=== PATIENT | male | born 1985 | race Caucasian/White ===

== ENCOUNTER → 2024-06-05 | Outpatient (CLI) | payer OTHER ==
[2024-06-05 17:04] LABS: Campylobacter Sp Not Detected (NOT DETECT); Enteroaggregative E. coli-EAEC Not Detected (NOT DETECT); Enteropathogenic E. coli-EPEC Detected (NOT DETECT); Enterotoxigenic E. coli-ETEC Detected (NOT DETECT); Plesiomonas Shigelloides Not Detected (NOT DETECT); Salmonella Sp Not Detected (NOT DETECT); Vibrio Cholerae Not Detected (NOT DETECT); Vibrio Sp Not Detected (NOT DETECT); Yersinia Enterocolitica Not Detected (NOT DETECT)
[2024-06-05 17:05] LABS: Adenovirus F 40/41 Not Detected (NOT DETECT); Astrovirus Not Detected (NOT DETECT); Cryptosporidium Not Detected (NOT DETECT); Cyclospora Cayetanensis Not Detected (NOT DETECT); E. Coli O157 Not Detected (NOT DETECT); Entamoeba Histolytica Not Detected (NOT DETECT); Giardia Lamblia Not Detected (NOT DETECT); Norovirus GI/GII Not Detected (NOT DETECT); Rotavirus A Not Detected (NOT DETECT); Sapovirus Not Detected (NOT DETECT); Shiga Toxin-prod E. coli-STEC Not Detected (NOT DETECT); Shigella/Enteroin E. coli-EIEC Not Detected (NOT DETECT)
== END ==
LOC: LAB SHORT 08:00 → LAB 08:00
PROVIDERS: Physician Assistant
DX: R19.7 Diarrhea, unspecified (principal)
CPT/HCPCS: 87507

== ENCOUNTER 2025-06-22 16:14 | Emergency (ER) | payer OTHER ==
[~2025-06-22] VITALS: Ht 167.6 cm; Wt 72.6 kg
[2025-06-22 17:07] VITALS: BP 144/90
[2025-06-22] MEDS ORDERED: SULTRIDS PO (19:04)
[2025-06-22] MEDS ORDERED: Trimethoprim/Sulfamethoxazole DS Tab PO ONE (19:05)
[2025-06-22] MEDS ORDERED: Ketorolac Tromethamine 15mg Vial IM ONE (19:05)
== END 2025-06-22 19:26 | disposition home or self-care (01) ==
LOC: ER 16:14
DX: L03.116 Cellulitis of left lower limb (principal)
CPT/HCPCS: 73560-LT; 96372; 99283-25; A9270; J1885

== ENCOUNTER 2025-06-27 14:45 | Inpatient (IN) | payer OTHER ==
[~2025-06-27] VITALS: Ht 167.6 cm; Wt 76.3 kg
[~2025-06-27 14:45] MED LIST: SULTRIDS PO
[2025-06-27 17:11] LABS: BASOPHILS ABSOLUTE AUTO 0.03 K/mm3 (0.00-0.23); BASOPHILS PERCENT AUTO 0 % (0-2); EOSINOPHILS ABSOLUTE AUTO 0.03 K/mm3 (0.00-0.68); EOSINOPHILS PERCENT AUTO 0 % (0-6); Hematocrit 39.2 % (37.0-53.0); Hemoglobin 13.4 g/dL (13.5-17.5); IMMATURE GRAN ABSOLUTE AUTO 0.03 K/mm3 (0.00-0.10); IMMATURE GRAN PERCENT AUTO 0 % (0-1); LYMPHOCYTES ABSOLUTE AUTO 1.62 K/mm3 (0.84-5.20); LYMPHOCYTES PERCENT AUTO 15 % (21-46); MONOCYTES ABSOLUTE AUTO 0.86 K/mm3 (0.16-1.47); MONOCYTES PERCENT AUTO 8 % (4-13); Mean Corpuscular HGB Conc 34.2 g/dL (31.5-36.5); Mean Corpuscular Volume 82 fL (80-100); NEUTROPHILS ABSOLUTE AUTO 8.40 K/mm3 (1.96-9.15); NEUTROPHILS PERCENT AUTO 77 % (41-73); NRBC ABSOLUTE 0.00 K/mm3 (0.00-0.02); NRBC Auto 0.0 /100 WBC (0.0-0.2); Platelet Count 321 K/mm3 (150-400); RDW Coefficient Variation 12.5 % (11.7-14.2); RDW Standard Deviation 37.7 fL (35.1-46.3)
[2025-06-27 17:38] LABS: C-REACTIVE PROTEIN, EXT RANGE 11.8 mg/dL (0.000-0.300)
[2025-06-27 17:41] LABS: Alanine Aminotransfer (ALT/SGP 36.0 U/L (12-78); Albumin, Blood 3.8 g/dL (3.4-5.0); Albumin/Globulin Ratio 0.9 (0.8-1.8); Anion Gap 7.0 mmol/L (3-11); Aspartate Aminotrans (AST/SGOT 22.0 U/L (12-37); Bilirubin, Total 0.4 mg/dL (0.1-1.0); Blood Urea Nitrogen 13.0 mg/dL (8-24); CO2, Blood 25.0 mmol/L (21-32); Calcium, Blood 9.4 mg/dL (8.5-10.1); Chloride, Blood 106.0 mmol/L (98-108); Creatinine, Blood 0.84 mg/dL (0.60-1.20); Globulin, Blood 4.2 g/dL (2.2-4.0); Glucose, Blood 98.0 mg/dL (70-99); Potassium, Blood 4.0 mmol/L (3.5-5.5); Sodium, Blood 134.0 mmol/L (136-145); Total Protein, Blood 8.0 g/dL (6.4-8.2)
[2025-06-27] MEDS ORDERED: Ondansetron HCl 2 MG / ML 2ML Vial IV PRN (19:05)
[2025-06-27] MEDS ORDERED: Vancomycin (Pharmacy Consult) IV SCH (19:10)
[2025-06-27] MEDS ORDERED: NS 1,000 ML IV SCH (19:10)
[2025-06-27] MEDS ORDERED: Ketorolac Tromethamine 15mg Vial IV PRN (19:25)
[2025-06-27 19:59] LABS: U Amphetamine Screen Not Detected; U Barbituate Screen Not Detected; U Benzodiazapine Screen DETECTED; U Buprenorphine Screen Not Detected; U Cannabinoids Screen Not Detected; U Cocaine Screen Not Detected; U Methadone Screen Not Detected; U Methamphetamine Screen Not Detected; U Opiates Screen Not Detected; U Oxycodone Screen Not Detected; U Phencyclidine Screen Not Detected
[2025-06-27] MEDS ORDERED: CefTRIAXone Sodium 2,000 MG in NS 100 ML IV SCH (20:00)
[2025-06-27] MEDS ORDERED: Ketorolac Tromethamine 15mg Vial IV ONE (20:00)
[2025-06-27] MEDS ORDERED: Lactobacil 2-S.Thermo-Bifido 1 1 Cap PO SCH (21:00)
[2025-06-27 21:47] VITALS: BP 133/76
[2025-06-28] VITALS (15 sets, daily range): BP systolic 120–146; BP diastolic 68–88
[2025-06-28 06:24] LABS: Anion Gap 6.0 mmol/L (3-11); Blood Urea Nitrogen 18.0 mg/dL (8-24); CO2, Blood 24.0 mmol/L (21-32); Calcium, Blood 8.4 mg/dL (8.5-10.1); Chloride, Blood 109.0 mmol/L (98-108); Creatinine, Blood 0.83 mg/dL (0.60-1.20); Glucose, Blood 93.0 mg/dL (70-99); Potassium, Blood 4.4 mmol/L (3.5-5.5); Sodium, Blood 135.0 mmol/L (136-145)
[2025-06-28] MEDS ORDERED: NS 250 ML IV PRN (06:30)
--- NOTE | 2025-06-28 06:45 | NUR ---
SHIFT SUMMARY PT ARRIVED FROM ER AROUND 2200. ORIENTED TO ROOM. REDDENED AREA OUTLINED ON LEFT LEG. IV VANCO SENT UP WITH PT AND GIVEN PER EMAR. 1 TIME BAG OF NS INFUSING @ 200ml/hr. SNACK AND DRINK GIVEN ON ARRIVAL BUT PT HAS BEEN NPO SINCE MIDNIGHT. ORTHO CONSULT PLACED WITH ANSWERING SERVICE. PT ARRIVED WITH WALLET AND SIFNIFICANT AMMOUNT OF MORIN. SECURITY CALLED AND ITEMS TAKEN AND SECURED. VSS. BED IN LOWEST POSITION AND CALL LIGHT IN REACH.
[2025-06-28 08:43] LABS: Hematocrit 35.3 % (37.0-53.0); Hemoglobin 11.9 g/dL (13.5-17.5); Mean Corpuscular HGB Conc 33.7 g/dL (31.5-36.5); Mean Corpuscular Volume 81 fL (80-100); NRBC ABSOLUTE 0.00 K/mm3 (0.00-0.02); NRBC Auto 0.0 /100 WBC (0.0-0.2); Platelet Count 261 K/mm3 (150-400); RDW Coefficient Variation 12.4 % (11.7-14.2); RDW Standard Deviation 37.2 fL (35.1-46.3)
[2025-06-28] MEDS ORDERED: Enoxaparin 40 MG/0.4 ML SYR SC SCH (09:00)
--- NOTE | 2025-06-28 16:07 | NUR ---
NOTE VANCO DUE AT 1400. NOTIFIED PHARMACY IT IS LATE, PHARMACY SAID "GO AHEAD AND SEND TO OR FOR IT TO BE GIVEN. CALLED DAY SURGERY TO BE MADE AWARE. VANCO TUBED OFF.
[2025-06-28] MEDS ORDERED: Midazolam HCl 1MG / ML 2ML Vial ONE (16:25)
[2025-06-28] MEDS ORDERED: FentaNYL Citrate 50 MCG/ML 2 ML Injection ONE (16:44)
[2025-06-28] MEDS ORDERED: Ondansetron HCl 2 MG / ML 2ML Vial ONE (16:47)
[2025-06-28] MEDS ORDERED: Dexamethasone Sod Phos 10 MG/ML 1ML VIAL ONE (16:47)
[2025-06-28] MEDS ORDERED: Ketorolac Tromethamine 30mg Vial ONE (17:04)
[2025-06-28] MEDS ORDERED: Ondansetron HCl 2 MG / ML 2ML Vial IV PRN (17:10)
[2025-06-28] MEDS ORDERED: FentaNYL Citrate 50 MCG/ML 2 ML Injection IV PRN ×2 (17:10)
[2025-06-28] MEDS ORDERED: HYDROmorphone HCl/Pf 1MG SYR IV PRN ×2 (17:10)
[2025-06-28] MEDS ORDERED: HYDROmorphone HCl/Pf 1MG SYR ONE (17:27)
--- NOTE | 2025-06-28 19:26 | NUR ---
SHIFT SUMMARY PT A&OX4. PT ADMITTED DUE TO CELLULITIS. PT INDEPENDENT IN ROOM. PT HAD I&D TODAY. PT GOT BACK FROM PACU AT 1730. PT HAS CAITLIN WRAP IN PLACE ABOVE KNEE TO ANKLE. WITH PADDING IN PLACE PER BOAT DESIGNER. NO DRAINAGE NOTED. PT REPORTS NO NAUSEA. HAS NEW POWERGLIDE TO L UA. PT REPORTS NO CHEST PAIN OR SOB. PT HAS WEIGHT BEARING TOLERATED ORDERS. PT EDUCATED ABOUT WEIGHT BEARING TOLERATED. PT HAS INCENTIVE SPIROMETER AT BEDSIDE, PT PERFORMED CORRECT USE OF INCENTIVE SPIROMETER AND KNOWS TO USE TOLERATED. PT ON ROOM AIR. POST OP VITALS STARTED. PT IN BED, WITH EXTREMITY ELEVATED AND COLD ICE PACKS IN PLACE. BED IN LOWEST POSITION, CALL LIGHT IN REACH. PT GETTING IV ANTIBIOTICS.
[2025-06-28] MEDS ORDERED: OxyCODONE 5 mg/Acetamin 325 mg TABLET PO PRN (20:45)
[2025-06-28 22:11] LABS: Vancomycin, Trough 13.1 ug/mL (5.0-10.0)
[2025-06-29 00:51] VITALS: BP 111/57
[2025-06-29 04:30] LABS: BASOPHILS ABSOLUTE AUTO 0.02 K/mm3 (0.00-0.23); BASOPHILS PERCENT AUTO 0 % (0-2); EOSINOPHILS ABSOLUTE AUTO 0.00 K/mm3 (0.00-0.68); EOSINOPHILS PERCENT AUTO 0 % (0-6); Hematocrit 32.4 % (37.0-53.0); Hemoglobin 11.0 g/dL (13.5-17.5); IMMATURE GRAN ABSOLUTE AUTO 0.03 K/mm3 (0.00-0.10); IMMATURE GRAN PERCENT AUTO 0 % (0-1); LYMPHOCYTES ABSOLUTE AUTO 0.98 K/mm3 (0.84-5.20); LYMPHOCYTES PERCENT AUTO 10 % (21-46); MONOCYTES ABSOLUTE AUTO 0.43 K/mm3 (0.16-1.47); MONOCYTES PERCENT AUTO 4 % (4-13); Mean Corpuscular HGB Conc 34.0 g/dL (31.5-36.5); Mean Corpuscular Volume 81 fL (80-100); NEUTROPHILS ABSOLUTE AUTO 8.78 K/mm3 (1.96-9.15); NEUTROPHILS PERCENT AUTO 86 % (41-73); NRBC ABSOLUTE 0.00 K/mm3 (0.00-0.02); NRBC Auto 0.0 /100 WBC (0.0-0.2); Platelet Count 326 K/mm3 (150-400); RDW Coefficient Variation 12.3 % (11.7-14.2); RDW Standard Deviation 36.7 fL (35.1-46.3)
[2025-06-29 04:35] VITALS: BP 109/44
[2025-06-29 04:57] LABS: Anion Gap 8.0 mmol/L (3-11); Blood Urea Nitrogen 19.0 mg/dL (8-24); CO2, Blood 26.0 mmol/L (21-32); Calcium, Blood 8.4 mg/dL (8.5-10.1); Chloride, Blood 107.0 mmol/L (98-108); Creatinine, Blood 0.7 mg/dL (0.60-1.20); Glucose, Blood 151.0 mg/dL (70-99); Potassium, Blood 4.4 mmol/L (3.5-5.5); Sodium, Blood 137.0 mmol/L (136-145)
--- NOTE | 2025-06-29 05:52 | NUR ---
SHIFT SUMMARY NOC PT A/O X 4. PLEASANT AND COOPERATIVE WITH CARE. POST I&D OF L KNEE VSS. PT HAS DRESSING IN PLACE C/D/I. POWERGLIDE IN ERON PLACED BY ICU ASSET RECOVERY SPECIALIST AFTER TIARA POWERGLIDE INFILTRATED. IV ABX AND PAIN RX PER EMAR. PT REFUSED RLE SCD DUE TO DISCOMFORT. PT CURRENTLY RESTING WITH BED IN LOWEST POSITION, AND CALL LIGHT WITHIN REACH.
[2025-06-29 07:24] VITALS: BP 120/76
--- NOTE | 2025-06-29 08:05 | NUR ---
NOTE PT REFUSED LOVENOX. CAITLIN WRAP IN PLACE. NO DRAINAGE NOTED. DR. HUNT CAME AND PER PT SAID "HANG OUT HERE TODAY AND MAYBE D/C TOMORROW WILL CHANGE DRESSING TOMORROW." LEG ELAVATED.
[2025-06-29 14:23] LABS: Vancomycin, Trough 12.6 ug/mL (5.0-10.0)
[2025-06-29 15:24] VITALS: BP 131/74
--- NOTE | 2025-06-29 17:44 | NUR ---
SHIFT SUMMARY PT A&OX4. PT ADMITTED DUE TO CELLULITIS. PT INDEPENDENT IN ROOM. PT HAD I&D YESTERDAY. PT REPORTS NO CHEST PAIN/SOB. PT REPORTS PAIN AND SWELLING IN L LEG, PAIN MANAGED WITH COLD THERAPY AND MEDICATED PER EMAR. PT HAS L LEG ELEVATED AT HEART LEVEL. PT HAS CAITLIN WRAP IN PLACE ABOVE KNEE TO ANKLE. WITH PACKING IN PLACE PER PROBATION COUNSELOR YESTERDAY. NO DRAINAGE NOTED. PT REPORTS NO NAUSEA. HAS NEW POWERGLIDE TO ERON PER NIGHT RN. PT HAS WEIGHT BEARING TOLERATED ORDERS. INCENTIVE SPIROMETER AT BEDSIDE, PT ON ROOM AIR.. PT IN BED, BED IN LOWEST POSITION, CALL LIGHT IN REACH. PT GETTING IV ANTIBIOTICS. SURGEON ROUNDED ON PT THIS AM. VSS.
[2025-06-29 20:09] VITALS: BP 123/60
[2025-06-30 03:34] VITALS: BP 132/80
[2025-06-30 06:06] LABS: BASOPHILS ABSOLUTE AUTO 0.04 K/mm3 (0.00-0.23); BASOPHILS PERCENT AUTO 1 % (0-2); EOSINOPHILS ABSOLUTE AUTO 0.05 K/mm3 (0.00-0.68); EOSINOPHILS PERCENT AUTO 1 % (0-6); Hematocrit 32.4 % (37.0-53.0); Hemoglobin 10.8 g/dL (13.5-17.5); IMMATURE GRAN ABSOLUTE AUTO 0.01 K/mm3 (0.00-0.10); IMMATURE GRAN PERCENT AUTO 0 % (0-1); LYMPHOCYTES ABSOLUTE AUTO 2.36 K/mm3 (0.84-5.20); LYMPHOCYTES PERCENT AUTO 32 % (21-46); MONOCYTES ABSOLUTE AUTO 0.63 K/mm3 (0.16-1.47); MONOCYTES PERCENT AUTO 8 % (4-13); Mean Corpuscular HGB Conc 33.3 g/dL (31.5-36.5); Mean Corpuscular Volume 84 fL (80-100); NEUTROPHILS ABSOLUTE AUTO 4.39 K/mm3 (1.96-9.15); NEUTROPHILS PERCENT AUTO 59 % (41-73); NRBC ABSOLUTE 0.00 K/mm3 (0.00-0.02); NRBC Auto 0.0 /100 WBC (0.0-0.2); Platelet Count 303 K/mm3 (150-400); RDW Coefficient Variation 12.4 % (11.7-14.2); RDW Standard Deviation 37.9 fL (35.1-46.3)
--- NOTE | 2025-06-30 06:08 | NUR ---
SHIFT SUMMARY: Pt admitted for cellulitis and is a full code. Is alert and able to make needs known. ADLs have been IND. when asked about pain he stated that it is manageable and would let this LN know if it changed. Power glide to right upper arm is patent with dressing that is CDI. dressing to left knee is CDI.
[2025-06-30 06:25] LABS: Anion Gap 7.0 mmol/L (3-11); Blood Urea Nitrogen 12.0 mg/dL (8-24); CO2, Blood 28.0 mmol/L (21-32); Calcium, Blood 7.9 mg/dL (8.5-10.1); Chloride, Blood 110.0 mmol/L (98-108); Creatinine, Blood 0.66 mg/dL (0.60-1.20); Glucose, Blood 92.0 mg/dL (70-99); Potassium, Blood 3.9 mmol/L (3.5-5.5); Sodium, Blood 141.0 mmol/L (136-145)
[2025-06-30 07:48] VITALS: BP 131/76
[2025-06-30 14:20] LABS: Vancomycin, Trough 49.7 ug/mL (5.0-10.0)
[2025-06-30] MEDS ORDERED: Acetaminophen650 M1 PO (14:48)
[2025-06-30] MEDS ORDERED: AMOCLA875 PO (14:49)
[2025-06-30] MEDS ORDERED: VISBIOME 112.51 EACH PO (14:50)
[2025-06-30] MEDS ORDERED: Norco 10-325 T1 EACH PO (14:51)
[2025-06-30] MEDS ORDERED: IBUP400 PO (14:52)
[2025-06-30 15:53] LABS: Vancomycin, Trough 15.7 ug/mL (5.0-10.0)
--- NOTE | 2025-06-30 15:57 | NUR ---
DISCHARGE PT AOX4, COOPERATIVE, ABLE TO MAKE NEEDS KNOWN. PT IS IND IN ROOM AND AMBULATES HALLWAYS IND. ON ROOM AIR. POWERGLIDE DC'D BY THIS RN WITHOUT EVENTS. TOLERATING MEDICATION. PER MD, LAST VANCO IV NOT NEEDED, AUGMENTIN ADMINSITERED PRIOR TO DC. PT OPTED TO WALKED DOWN TO TRANPORT. HARD SCRIPT FOR PAIN MEDS SENT WITH PT WELL "LIGHT DUTY NOTE" FOR WORK. ALL PERSONAL BELONGIGS WENT WITH PT.
== END 2025-06-30 16:04 | disposition home or self-care (01) | DRG 501 ==
LOC: ER 14:45 → MEDS 14:46
PROVIDERS: Nurse Practitioner Acute Care; Student in an Organized Health Care Education/Training Program; ADMIT Student in an Organized Health Care Education/Training Program
PROC: 3E03329 Introduction of Other Anti-infective into Peripheral Vein, Percutaneous Approach (ICD-10-PCS; 2025-06-27)
PROC: 0MBP0ZZ Excision of Left Knee Bursa and Ligament, Open Approach (ICD-10-PCS; principal; 2025-06-30)
DX: M70.42 Prepatellar bursitis, left knee (principal); L03.116 Cellulitis of left lower limb; B19.20 Unspecified viral hepatitis C without hepatic coma; B95.61 Methicillin susceptible Staphylococcus aureus infection as the cause of diseases classified elsewhere; Z79.2 Long term (current) use of antibiotics
CPT/HCPCS: 10061; 36415; 73562-LT; 80048; 80053; 80202; 83605; 85025; 85027; 85651; 86140; 87040; 87070; 87075; 87077; 87147; 87186; 87205; 96365; 96375; 99285-25; A9270; C1751; G0378; J0696; J1100; J1171; J1650; J1885; J2250; J2405; J2704; J3010; J3373; J7030; J7050; J7120